=== PATIENT | female | born 1995 ===

== ENCOUNTER 2020-02-23 15:06 | Inpatient (IN) | payer OTHER ==
[~2020-02-23] VITALS: Ht 157.5 cm; Wt 57.6 kg
[~2020-02-23 15:06] MED LIST: SPRINTEC PO
[2020-03-02] MEDS ORDERED: ESTARYLLA1 EACH (13:16)
[2020-03-10] MEDS ORDERED: KETO10TA2 PO (15:16)
[2020-03-10] MEDS ORDERED: INTESTINEX680 M1 PO (15:16)
[2020-03-10] MEDS ORDERED: PRILOSEC OTC20 MG PO (15:16)
[2020-03-10] MEDS ORDERED: ACETAMINOPHEN500 M2 PO (15:16)
== END 2020-03-10 15:37 | disposition home or self-care (01) | DRG 330 ==
LOC: SURH 03-02 11:19 → O/R 03-02 11:30 → SURH 03-02 11:30
PROVIDERS: ADMIT Surgery; ATTEND Surgery
PROC: 07TB4ZZ Resection of Mesenteric Lymphatic, Percutaneous Endoscopic Approach (ICD-10-PCS; 2020-03-02)
PROC: 0DTK4ZZ Resection of Ascending Colon, Percutaneous Endoscopic Approach (ICD-10-PCS; principal; 2020-03-02 17:45)
PROC: BW21YZZ Computerized Tomography (CT Scan) of Abdomen and Pelvis using Other Contrast (ICD-10-PCS; 2020-03-05)
PROC: 0D9670Z Drainage of Stomach with Drainage Device, Via Natural or Artificial Opening (ICD-10-PCS; 2020-03-05)
PROC: 3E0G76Z Introduction of Nutritional Substance into Upper GI, Via Natural or Artificial Opening (ICD-10-PCS; 2020-03-05)
DX: C18.1 Malignant neoplasm of appendix (principal); K56.691 Other complete intestinal obstruction; C77.2 Secondary and unspecified malignant neoplasm of intra-abdominal lymph nodes; R59.0 Localized enlarged lymph nodes

== ENCOUNTER 2020-03-01 12:08 | Day surgery (SDC) | payer OTHER ==
[2020-03-02] MEDS ORDERED: ESTARYLLA1 EACH (13:16)
== END 2020-03-01 15:15 | disposition home or self-care (01) ==
LOC: AMB-ENDOS 12:08
PROVIDERS: ATTEND Surgery
DX: C18.1 Malignant neoplasm of appendix (principal)

== ENCOUNTER 2020-04-06 07:17 | Outpatient (CLI) | payer OTHER ==
[~2020-04-06 07:17] MED LIST changes: +ACETAMINOPHEN500 M2 PO; +ESTARYLLA1 EACH; +INTESTINEX680 M1 PO; +KETO10TA2 PO; +PRILOSEC OTC20 MG PO
== END 2020-04-06 15:00 | disposition home or self-care (01) ==
LOC: LAB 07:17
PROVIDERS: ATTEND Surgery
DX: C18.1 Malignant neoplasm of appendix (principal); R10.84 Generalized abdominal pain; R59.0 Localized enlarged lymph nodes

== ENCOUNTER 2020-04-06 08:58 | Outpatient (CLI) | payer OTHER | END 2020-04-06 09:14 | disposition home or self-care (01) | LOC: TOM 08:58 | PROVIDERS: ATTEND Surgery | DX: C18.1 Malignant neoplasm of appendix (principal); R59.0 Localized enlarged lymph nodes; R10.84 Generalized abdominal pain ==

== ENCOUNTER 2021-04-19 20:56 | Emergency (ER) | payer OTHER ==
[~2021-04-19] VITALS: Ht 157.5 cm; Wt 61.7 kg
[2021-04-20] MEDS ORDERED: INTESTINEX680 M1 PO (08:43)
[2021-04-20] MEDS ORDERED: PEPCID AC20 MG PO (08:43)
[2021-04-20] MEDS ORDERED: LEVSIN0.125 MG PO (08:43)
[2021-04-20] MEDS ORDERED: CARAFATE1 GM PO (08:43)
== END 2021-04-20 | disposition home or self-care (01) ==
LOC: ER 20:56
DX: A05.1 Botulism food poisoning (principal)

== ENCOUNTER 2021-07-01 09:35 | Day surgery (SDC) | payer OTHER ==
[~2021-07-01 09:35] MED LIST changes: +CARAFATE1 GM PO; +LEVSIN0.125 MG PO; +PEPCID AC20 MG PO
== END 2021-07-01 14:40 | disposition home or self-care (01) ==
LOC: AMB-ENDOS 09:35
PROVIDERS: ATTEND Surgery
DX: K62.89 Other specified diseases of anus and rectum (principal)